=== PATIENT | male | born 2000 | race Caucasian/White ===

== ENCOUNTER 2023-02-01 15:12 | Emergency (ER) | payer OTHER ==
[~2023-02-01] VITALS: Ht 172.7 cm; Wt 77.1 kg
[2023-02-01 15:16] VITALS: BP 132/86
[2023-02-01] MEDS ORDERED: ACET-10509 PO (17:04)
[2023-02-01] MEDS ORDERED: IBUP-2213 PO (17:04)
[2023-02-01] MEDS ORDERED: BENZ-300 PO (17:04)
--- NOTE | 2023-02-01 19:40 | NUR ---
patient call for d/c, no answer. Patient discharged with v/s stable. NO after care instructions given .
== END 2023-02-01 19:40 | disposition home or self-care (01) ==
LOC: MED 15:12
DX: B08.5 Enteroviral vesicular pharyngitis (principal); Z20.822 Contact with and (suspected) exposure to COVID-19; Z79.899 Other long term (current) drug therapy
CPT/HCPCS: 86308; 87081; 99283